=== PATIENT | female | born 1990 | race American Indian/Alaskan Native ===

== ENCOUNTER 2016-11-16 09:28 | Emergency (ER) | payer OTHER ==
[2016-11-16 09:29] VITALS: BMI 29.7
[2016-11-16 09:40] VITALS: BP 123/87; PULSE 94; RESP 20; TEMP 98.1; O2SAT 100
[2016-11-16] MEDS ORDERED: Oxycodone/Acetaminophen 5/325 mg Tab PO STA (09:45)
--- NOTE | 2016-11-16 09:45 | C.PDOC ---
History Of Present Illness Dental pain, x 1 wk, no fever taking no meds Time Seen by Provider: 11/16/16 09:34 Chief Complaint (Nursing): Dental Pain History Per: Patient History/Exam Limitations: no limitations Onset/Duration Of Symptoms: Days Current Symptoms Are (Timing): Worse Severity: Moderate Past Medical History Reviewed: Historical Data, Nursing Documentation, Vital Signs Vital Signs: Last Vital Signs Temp 98.1 F 11/16/16 09:37 Pulse 94 H 11/16/16 09:37 Resp 20 11/16/16 09:37 BP 123/87 11/16/16 09:37 Pulse Ox 100 11/16/16 09:37 - Medical History PMH: Gastritis, HTN Surgical History: No Surg Hx Family History: States: Unknown Family Hx - Social History Hx Tobacco Use: Yes Hx Alcohol Use: No Hx Substance Use: No - Immunization History Hx Influenza Vaccination: Yes Review Of Systems Except As Marked, All Systems Reviewed And Found Negative. Physical Exam - Physical Exam Appears: Well, Non-toxic Head: Atraumatic, Normacephalic Teeth: Caries (multiple with partial messing rt lower and upper), Tender To Palpation Throat: Normal Neurological/Psych: Oriented x3, Normal Speech, Normal Cognition ED Course And Treatment O2 Sat by Pulse Oximetry: 100 Medical Decision Making Medical Decision Making: Pt medicated for pain Urged to follow up with dentist flako Disposition - Disposition Disposition: HOME/ ROUTINE Disposition Time: 09:42 Condition: GOOD Additional Instructions: Follow up with dentist flako Prescriptions: Amoxicillin [Amoxil 500 mg Cap] 1 cap PO TID #21 cap Naproxen [Naprosyn] 1 tab PO BID PRN #25 tab PRN Reason: Pain Instructions: Dental Caries (ED), Toothache (ED) - Clinical Impression Clinical Impression: Pain, dental
[2016-11-16] MEDS ORDERED: Oxycodone/Acetaminophen 5/325 mg Tab ONE (09:59)
== END 2016-11-16 10:08 | disposition home or self-care (01) ==
LOC: C.ER 09:28
DX: K08.89 Other specified disorders of teeth and supporting structures (principal)
CPT/HCPCS: 96372; 99283; J1885

== ENCOUNTER 2016-11-27 08:34 | Emergency (ER) | payer OTHER ==
[2016-11-27 08:40] VITALS: BMI 25.0
[2016-11-27] MEDS ORDERED: Sodium Chloride 0.9% 1,000 ML IV ONE ×2 (08:42→10:14)
[2016-11-27] MEDS ORDERED: Sodium Chloride 0.9% 1,000 ML ONE ×2 (08:58→10:16)
--- NOTE | 2016-11-27 09:08 | C.PDOC ---
History Of Present Illness 26 yr old female with PMHx of gastric sleeve in 2011, presents to the ER for evaluation of nausea, vomiting, diarrhea and headache for 1 day. Patient denies fever, chest pain, SOB, abdominal pain, dysuria, weakness or numbness. Time Seen by Provider: 11/27/16 08:37 Chief Complaint (Nursing): Abdominal Pain History Per: Patient History/Exam Limitations: no limitations Onset/Duration Of Symptoms: Days (1) Current Symptoms Are (Timing): Still Present Radiation Of Pain To:: None Past Medical History Reviewed: Historical Data, Nursing Documentation, Vital Signs Vital Signs: Last Vital Signs Temp 98.6 F 11/27/16 11:25 Pulse 58 L 11/27/16 11:25 Resp 16 11/27/16 11:25 BP 110/69 11/27/16 11:25 Pulse Ox 100 11/27/16 11:25 - Medical History PMH: Gastritis, HTN, Sexually Transmitted Disease Family History: States: No Known Family Hx - Social History Hx Tobacco Use: Yes Hx Alcohol Use: No Hx Substance Use: No - Immunization History Hx Tetanus Toxoid Vaccination: No Hx Influenza Vaccination: Yes Hx Pneumococcal Vaccination: No Review Of Systems Except As Marked, All Systems Reviewed And Found Negative. Constitutional: Negative for: Fever Cardiovascular: Negative for: Chest Pain Respiratory: Negative for: Shortness of Breath Gastrointestinal: Positive for: Nausea, Vomiting, Diarrhea. Negative for: Abdominal Pain Genitourinary: Negative for: Dysuria Neurological: Positive for: Headache. Negative for: Weakness, Numbness Physical Exam - Physical Exam Appears: Non-toxic, No Acute Distress, Other ((+) Actively vomiting.) Skin: Normal Color, Warm, Dry, No Rash Head: Atraumatic, Normacephalic Eye(s): bilateral: Normal Inspection, PERRL, EOMI Throat: Normal, No Erythema, No Exudate Neck: Normal, Normal ROM, Supple Chest: Symmetrical, No Tenderness Cardiovascular: Rhythm Regular, No Murmur Respiratory: Normal Breath Sounds, No Rales, No Rhonchi, No Wheezing Gastrointestinal/Abdominal: Soft, Tenderness (Mild diffuse tenderness), No Guarding, No Rebound Extremity: Normal ROM, No Swelling Neurological/Psych: Oriented x3, Normal Speech Gait: Steady ED Course And Treatment - Laboratory Results Result Diagrams: 11/27/16 09:10 11/27/16 09:10 Lab Interpretation: Normal Urine POC: Negative O2 Sat by Pulse Oximetry: 99 Pulse Ox Interpretation: Normal Progress Note: Patient requested pain medication and is treated with Toradol IVP. Patient is treated with Pepcid IVP and Reglan IVP for the nausea, vomiting and diarrhea. Treated with additional NSS and zofran. On re-evaluation tolerating PO, abdomen soft. On re-evaluation tolerating PO, feeling better. Abdomen soft non-tender Reassessment Condition: Improved Medical Decision Making Medical Decision Making: PLAN: * CBC * HCG Urine * Urinalysis * Pepcid IVP * Reglan IVP * Toradol IVP * Sodium Chloride IV Disposition Counseled Patient/Family Regarding: Studies Performed, Diagnosis, Need For Followup, Rx Given - Disposition Referrals: [facility] [Outside] [facility] [Outside] Disposition: HOME/ ROUTINE Disposition Time: 11:20 Condition: STABLE Additional Instructions: Follow up with your PMD or clinic Return to ED if any increase symptoms Prescriptions: Ondansetron ODT [Zofran ODT] 1 odt PO BID PRN #6 odt PRN Reason: Nausea/Vomiting Instructions: Dehydration (ED), Gastroenteritis (DC) - POA Present On Arrival: None - Clinical Impression Clinical Impression: Vomiting, Nausea - PA / COMMERCIAL ADMINISTRATOR / Resident Statement MD/DO has reviewed & agrees with the documentation as recorded. - Scribe Statement The provider has reviewed the documentation as recorded by the Scribe Amber Quinones All medical record entries made by the Scribe were at my direction and personally dictated by me. I have reviewed the chart and agree that the record accurately reflects my personal performance of the history, physical exam, medical decision making, and the department course for this patient. I have also personally directed, reviewed, and agree with the discharge instructions and disposition.
[2016-11-27 09:16] LABS: BASO % 0.4 % (0.0-2.0); EOS % 0.1 % (0.0-4.0); HEMATOCRIT 37.9 % (34.0-47.0); LYMPH # 0.8 K/uL (1.0-4.3); MEAN CELL VOLUME 83.1 fL (81.0-99.0); MEAN CORPUSCULAR HEMOGLOBIN 26.6 pg (27.0-31.0); MEAN PLATELET VOLUME 9.1 fL (7.2-11.7); MONO # 0.2 K/uL (0.0-0.8); MONO % 2.3 % (0.0-10.0); RED CELL DISTRIBUTION WIDTH 15.3 % (11.5-14.5); WHITE BLOOD COUNT 6.6 K/uL (4.8-10.8)
[2016-11-27 09:25] LABS: CHLORIDE 103 mmol/L (98-107); POTASSIUM 3.7 mmol/L (3.6-5.2); SODIUM 142 mmol/L (132-148)
[2016-11-27 09:27] LABS: GFR AFRICAN-AMERICAN > 60
[2016-11-27 09:28] LABS: ALB/GLOB RATIO 1.2 (1.0-2.1); ALKALINE PHOSPHATASE 69 U/L (38-126); ALT/SGPT 7 U/L (9-52); AST/SGOT 26 U/L (14-36); BILIRUBIN,TOTAL 0.6 mg/dL (0.2-1.3); BLOOD UREA NITROGEN 9 mg/dL (7-17); CALCIUM 9.2 mg/dl (8.6-10.4); CARBON DIOXIDE 22 mmol/L (22-30); GLUCOSE,RANDOM 110 mg/dL (65-105)
[2016-11-27 09:49] LABS: RBC URINE 3 /hpf (0-3); URINE BACTERIA OCC (<OCC); URINE BILIRUBIN NEGATIVE (NEGATIVE); URINE BLOOD NEGATIVE (NEGATIVE); URINE COLOR Yellow (YELLOW); URINE GLUCOSE (UA) NORMAL (Normal); URINE KETONE TRACE mg/dL (NEGATIVE); URINE LEUKOCYTE ESTERASE 1+ Leu/uL (Negative); URINE PROTEIN 1+ mg/dL (NEGATIVE); URINE UROBILINOGEN NORMAL mg/dL (0.2-1.0); WBC URINE 7 /hpf (0-5)
[2016-11-27 11:26] VITALS: BP 110/69; PULSE 58; RESP 16; TEMP 98.6
[2016-11-27 17:23] VITALS: O2SAT 99
== END 2016-11-27 11:26 | disposition home or self-care (01) ==
LOC: C.ER 08:34
DX: R11.2 Nausea with vomiting, unspecified (principal)
CPT/HCPCS: 80053; 81001; 83690; 84703; 85025; 96361; 96374; 96375; 99284; J1885; J2405; J2765; J7040

== ENCOUNTER 2016-11-27 20:46 | Emergency (ER) | payer OTHER ==
[2016-11-27 20:46] VITALS: BMI 29.7
[2016-11-27 20:55] VITALS: BP 166/82; PULSE 88; RESP 20; TEMP 98; O2SAT 97
--- NOTE | 2016-11-27 21:48 | C.PDOC ---
History Of Present Illness I went to see this patient as soon as I signed up for her, but could not find her. I was informed by the staff that the pt had left without being seen. Time Seen by Provider: 11/27/16 21:42 Past Medical History Vital Signs: Last Vital Signs Temp 98 F 11/27/16 20:51 Pulse 88 11/27/16 20:51 Resp 20 11/27/16 20:51 BP 166/82 H 11/27/16 20:51 Pulse Ox 97 11/27/16 20:51 - Medical History PMH: Gastritis, HTN, Sexually Transmitted Disease Family History: States: Unknown Family Hx - Social History Hx Tobacco Use: Yes Hx Alcohol Use: No Hx Substance Use: No - Immunization History Hx Tetanus Toxoid Vaccination: No Hx Influenza Vaccination: Yes Hx Pneumococcal Vaccination: No ED Course And Treatment O2 Sat by Pulse Oximetry: 97 Disposition - Disposition Disposition: LEFT W/O BEING SEEN - ER ONLY Disposition Time: 21:48 Condition: UNKNOWN - Clinical Impression Clinical Impression: Patient left without being seen
== END 2016-11-27 21:50 | disposition left against medical advice (07) ==
LOC: C.ER 20:46
DX: M54.9 Dorsalgia, unspecified (principal); Z02.9 Encounter for administrative examinations, unspecified

== ENCOUNTER 2016-11-29 09:28 | Emergency (ER) | payer OTHER ==
[2016-11-29 09:28] VITALS: BMI 29.7
[2016-11-29 10:02] VITALS: BP 126/85; PULSE 59; RESP 20; TEMP 98.2; O2SAT 100
--- NOTE | 2016-11-29 11:28 | C.PDOC ---
History Of Present Illness 26 year old female presents to the ED requesting detox from opioids. Patient was seen by the clinical social worker who states there was a detox bed available and instructed labs. Labs were ordered however the patient states she has a family emergency and left without being seen. Time Seen by Provider: 11/29/16 10:31 Chief Complaint (Nursing): Substance Abuse History Per: Patient History/Exam Limitations: no limitations Past Medical History Vital Signs: Last Vital Signs Temp 98.2 F 11/29/16 10:00 Pulse 59 L 11/29/16 10:00 Resp 20 11/29/16 10:00 BP 126/85 11/29/16 10:00 Pulse Ox 100 11/29/16 11:29 - Medical History PMH: Gastritis, HTN, Sexually Transmitted Disease Denies: Diabetes, Hepatitis, HIV, Seizures Family History: States: Unknown Family Hx - Social History Hx Tobacco Use: Yes Hx Alcohol Use: No Hx Substance Use: Yes (opiates) - Immunization History Hx Tetanus Toxoid Vaccination: No Hx Influenza Vaccination: Yes Hx Pneumococcal Vaccination: No ED Course And Treatment O2 Sat by Pulse Oximetry: 100 (Room air) Pulse Ox Interpretation: Normal Progress Note: Patient left without being seen. Disposition - Disposition Disposition: LEFT W/O BEING SEEN - ER ONLY Disposition Time: 11:00 Condition: STABLE - Clinical Impression Clinical Impression: Opioid abuse - PA / TELEPHONE DIRECTORY DISTRIBUTOR DRIVER / Resident Statement MD/DO has reviewed & agrees with the documentation as recorded. - Scribe Statement The provider has reviewed the documentation as recorded by the Scribe Shelia Le. All medical record entries made by the Scribe were at my direction and personally dictated by me. I have reviewed the chart and agree that the record accurately reflects my personal performance of the history, physical exam, medical decision making, and the department course for this patient. I have also personally directed, reviewed, and agree with the discharge instructions and disposition.
== END 2016-11-29 11:31 | disposition left against medical advice (07) ==
LOC: C.ER 09:28
DX: F11.10 Opioid abuse, uncomplicated (principal); Z02.9 Encounter for administrative examinations, unspecified

== ENCOUNTER 2016-12-08 11:09 | Emergency (ER) | payer OTHER ==
[2016-12-08 11:09] VITALS: BMI 29.7
[2016-12-08 11:24] VITALS: TEMP 98.7; O2SAT 100
--- NOTE | 2016-12-08 11:59 | C.PDOC ---
History Of Present Illness 26 yr old female with PMHx of HTN, presents to the ER for percocet detox. Patient reports last use was 2 days ago. Patient denies fever, chills, chest pain, SOB, nausea, vomiting, abdominal pain, diarrhea, headache, weakness or numbness. Denies any suicidal or homicidal ideation. Time Seen by Provider: 12/08/16 11:32 Chief Complaint (Nursing): Substance Abuse History Per: Patient History/Exam Limitations: no limitations Onset/Duration Of Symptoms: Persistent Past Medical History Reviewed: Historical Data, Nursing Documentation, Vital Signs Vital Signs: Last Vital Signs Temp 98.7 F 12/08/16 11:21 Pulse 74 12/08/16 14:22 Resp 16 12/08/16 14:22 BP 162/100 H 12/08/16 14:22 Pulse Ox 100 12/08/16 13:46 - Medical History PMH: Gastritis, HTN, Sexually Transmitted Disease Family History: States: No Known Family Hx - Social History Hx Tobacco Use: Yes Hx Alcohol Use: No Hx Substance Use: Yes (opiates) - Immunization History Hx Tetanus Toxoid Vaccination: No Hx Influenza Vaccination: Yes Hx Pneumococcal Vaccination: No Review Of Systems Except As Marked, All Systems Reviewed And Found Negative. Constitutional: Negative for: Fever, Chills Cardiovascular: Negative for: Chest Pain Respiratory: Negative for: Shortness of Breath Gastrointestinal: Negative for: Nausea, Vomiting, Abdominal Pain, Diarrhea Neurological: Negative for: Weakness, Numbness, Headache Psych: Negative for: Suicidal ideation Physical Exam - Physical Exam Appears: Well, Non-toxic, No Acute Distress Skin: Warm, Dry, No Rash Head: Atraumatic, Normacephalic Eye(s): bilateral: Normal Inspection, PERRL, EOMI Oral Mucosa: Moist Throat: Normal, No Erythema, No Exudate Neck: Normal, Normal ROM, Supple Chest: Symmetrical, No Tenderness Cardiovascular: Rhythm Regular, No Murmur Respiratory: Normal Breath Sounds, No Rales, No Rhonchi, No Wheezing Gastrointestinal/Abdominal: Normal Exam, Soft, No Tenderness, No Guarding, No Rebound Extremity: Normal ROM, No Swelling Neurological/Psych: Oriented x3, Normal Speech, Normal Motor ED Course And Treatment - Laboratory Results Result Diagrams: 12/08/16 11:57 12/08/16 11:57 Lab Interpretation: Normal O2 Sat by Pulse Oximetry: 100 Progress Note: Patient is pending crisis evaluation. Case discussed and patient evaluated by crisis who request discharge and follow up with outpatient services Medical Decision Making Medical Decision Making: PLAN: * Alcohol Serum * Drug Screen * CBC * Urinalysis Disposition Counseled Patient/Family Regarding: Studies Performed, Diagnosis, Need For Followup - Disposition Referrals: [facility] [Outside] [facility] [Outside] Disposition: HOME/ ROUTINE Disposition Time: 14:00 Condition: STABLE Additional Instructions: Follow up with outpatient services as directed by crisis team Instructions: Narcotic Abuse (ED), Hypertension (ED) - Clinical Impression Clinical Impression: Drug abuse, Hypertension - PA / STOCK WORKER AND DELIVERER / Resident Statement MD/DO has reviewed & agrees with the documentation as recorded. - Scribe Statement The provider has reviewed the documentation as recorded by the Scribe Amber Quinones All medical record entries made by the Yueib[employer]encia were at my direction and personally dictated by me. I have reviewed the chart and agree that the record accurately reflects my personal performance of the history, physical exam, medical decision making, and the department course for this patient. I have also personally directed, reviewed, and agree with the discharge instructions and disposition.
[2016-12-08 12:03] LABS: BASO % 0.6 % (0.0-2.0); EOS % 0.1 % (0.0-4.0); HEMATOCRIT 39.5 % (34.0-47.0); LYMPH # 1.7 K/uL (1.0-4.3); LYMPH % 34.4 % (20.0-40.0); MEAN CELL VOLUME 82.2 fL (81.0-99.0); MEAN CORPUSCULAR HEMOGLOBIN 26.8 pg (27.0-31.0); MEAN CORPUSCULAR HGB CONC 32.7 g/dL (33.0-37.0); MEAN PLATELET VOLUME 9.1 fL (7.2-11.7); MONO # 0.3 K/uL (0.0-0.8); RED CELL DISTRIBUTION WIDTH 15.3 % (11.5-14.5); WHITE BLOOD COUNT 4.8 K/uL (4.8-10.8)
[2016-12-08 12:10] LABS: CHLORIDE 96 mmol/L (98-107); POTASSIUM 3.2 mmol/L (3.6-5.2); SODIUM 141 mmol/L (132-148)
[2016-12-08 12:12] LABS: ALB/GLOB RATIO 1.2 (1.0-2.1); ALKALINE PHOSPHATASE 72 U/L (38-126); AST/SGOT 19 U/L (14-36); BILIRUBIN,TOTAL 0.6 mg/dL (0.2-1.3); BLOOD UREA NITROGEN 10 mg/dL (7-17); CARBON DIOXIDE 25 mmol/L (22-30); GFR AFRICAN-AMERICAN > 60; TOTAL PROTEIN 8.3 g/dL (6.3-8.3)
[2016-12-08 12:13] LABS: ALCOHOL SERUM < 10 mg/dl (0-10); ALT/SGPT 13 U/L (9-52); CALCIUM 9.1 mg/dl (8.6-10.4); GLUCOSE,RANDOM 94 mg/dL (65-105)
[2016-12-08 12:25] LABS: RBC URINE 5 /hpf (0-3); URINE BACTERIA RARE (<OCC); URINE BILIRUBIN NEGATIVE (NEGATIVE); URINE BLOOD NEGATIVE (NEGATIVE); URINE COLOR Yellow (YELLOW); URINE GLUCOSE (UA) NORMAL (Normal); URINE KETONE 1+ mg/dL (NEGATIVE); URINE LEUKOCYTE ESTERASE 2+ Leu/uL (Negative); URINE PROTEIN NEGATIVE (NEGATIVE); URINE URIC ACID CRYSTALS RARE /hpf (<OCC); WBC URINE 24 /hpf (0-5)
[2016-12-08 14:23] VITALS: BP 162/100; PULSE 74; RESP 16
== END 2016-12-08 14:23 | disposition home or self-care (01) ==
LOC: C.ER 11:09
DX: F19.10 Other psychoactive substance abuse, uncomplicated (principal); I10 Essential (primary) hypertension

== ENCOUNTER 2017-07-13 12:42 | Emergency (ER) | payer OTHER ==
[2017-07-13 12:42] VITALS: BMI 29.7
[2017-07-13] MEDS ORDERED: Sodium Chloride 0.9% 1,000 ML IV ONE ×2 (12:56→14:53)
--- NOTE | 2017-07-13 13:02 | C.PDOC ---
History Of Present Illness 27 y/o female brought in by EMS c/o abdominal pain, vomiting, and diarrhea since last night. Patient denies chest pain, SOB, or palpitations. No fever or chills. No symptoms. Time Seen by Provider: 07/13/17 12:43 Chief Complaint (Nursing): GI Problem History Per: Patient History/Exam Limitations: no limitations Onset/Duration Of Symptoms: Days Current Symptoms Are (Timing): Still Present Severity: Mild Location Of Pain/Discomfort: Diffuse Quality Of Discomfort: "Pain" Associated Symptoms: Nausea, Vomiting. denies: Fever, Chills Recent travel outside of the [place]: No Additional History Per: Patient Abnormal Vaginal Bleeding: No Past Medical History Reviewed: Historical Data, Nursing Documentation, Vital Signs Vital Signs: Last Vital Signs Temp 98.7 F 07/13/17 16:59 Pulse 60 07/13/17 16:59 Resp 18 07/13/17 16:59 BP 149/85 07/13/17 16:59 Pulse Ox 98 07/13/17 16:59 - Medical History PMH: Gastritis, HTN (NO MEDS), Sexually Transmitted Disease ((Can't recall ' which one')) Denies: Diabetes, Hepatitis, HIV, Chronic Kidney Disease, Seizures Other Surgeries: Gastric Sleeve Family History: States: Unknown Family Hx - Social History Hx Tobacco Use: Yes Hx Alcohol Use: No (Denies) Hx Substance Use: No (Denies) - Immunization History Hx Tetanus Toxoid Vaccination: No Hx Influenza Vaccination: No Hx Pneumococcal Vaccination: No Review Of Systems Except As Marked, All Systems Reviewed And Found Negative. Constitutional: Negative for: Fever, Chills Cardiovascular: Negative for: Chest Pain, Palpitations Respiratory: Negative for: Shortness of Breath Gastrointestinal: Positive for: Nausea, Vomiting, Abdominal Pain Genitourinary: Negative for: Dysuria, Vaginal Discharge, Vaginal Bleeding Physical Exam - Physical Exam Appears: Non-toxic, No Acute Distress Skin: Warm, Dry Head: Atraumatic, Normacephalic Oral Mucosa: Moist Chest: Symmetrical Cardiovascular: Rhythm Regular, No Murmur Respiratory: Normal Breath Sounds, No Rales, No Rhonchi, No Wheezing Gastrointestinal/Abdominal: Soft, Tenderness (Mild abdominal tenderness, diffusely) Back: Normal Inspection, No CVA Tenderness Neurological/Psych: Oriented x3 ED Course And Treatment - Laboratory Results Result Diagrams: 07/13/17 13:02 07/13/17 13:02 Lab Interpretation: No Acute Changes Urine POC: Negative O2 Sat by Pulse Oximetry: 100 (RA) Pulse Ox Interpretation: Normal - Other Rad No standard instances X-Ray: Viewed By Me, Read By Radiologist Interpretation: OBS series: neg Progress Note: Treated with IVF NSS x 2 liters, zofran and pepcid. On re- evaluation vomit x 1. treated with additional zofran and toradol 30 mg IV. Treated with KCL 40 meq PO. On re-evaluation abdomen soft. Discharged in stable condition Reassessment Condition: Improved Medical Decision Making Medical Decision Making: Plans: * Blood labs * Obstructive series * Pepcid * Zofran * IV fluids * UA Disposition Counseled Patient/Family Regarding: Studies Performed, Diagnosis, Need For Followup, Rx Given - Disposition Referrals: [facility] [Outside] [facility] [Outside] Disposition: HOME/ ROUTINE Disposition Time: 17:00 Condition: IMPROVED Additional Instructions: return to ED if any increase symptoms Prescriptions: Ondansetron ODT [Zofran ODT] 1 odt PO BID PRN #6 odt PRN Reason: Nausea/Vomiting Instructions: Gastroenteritis (ED) Forms: [facility] (Austrian) - POA Present On Arrival: None - Clinical Impression Clinical Impression: Vomiting, Nausea, Diarrhea, Gastroenteritis - Scribe Statement The provider has reviewed the documentation as recorded by the Scribe Dwaine dick All medical record entries made by the Scribe were at my direction and personally dictated by me. I have reviewed the chart and agree that the record accurately reflects my personal performance of the history, physical exam, medical decision making, and the department course for this patient. I have also personally directed, reviewed, and agree with the discharge instructions and disposition.
[2017-07-13 13:06] LABS: BASO % 0.3 % (0.0-2.0); HEMATOCRIT 36.5 % (34.0-47.0); LYMPH # 0.6 K/uL (1.0-4.3); MEAN CELL VOLUME 81.4 fL (81.0-99.0); MEAN CORPUSCULAR HEMOGLOBIN 26.6 pg (27.0-31.0); MEAN CORPUSCULAR HGB CONC 32.6 g/dL (33.0-37.0); MEAN PLATELET VOLUME 9.4 fL (7.2-11.7); MONO # 0.1 K/uL (0.0-0.8); MONO % 1.9 % (0.0-10.0); NRBC % 0.1 % (0.0-2.0); PLATELET COUNT 340 K/uL (130-400); RED CELL DISTRIBUTION WIDTH 16.4 % (11.5-14.5); WHITE BLOOD COUNT 6.4 K/uL (4.8-10.8)
[2017-07-13 13:27] VITALS: RESP 18
[2017-07-13 13:32] LABS: ALB/GLOB RATIO 1.4 (1.0-2.1); ALKALINE PHOSPHATASE 85 U/L (38-126); ALT/SGPT 26 U/L (9-52); AST/SGOT 27 U/L (14-36); BILIRUBIN,TOTAL 0.9 mg/dL (0.2-1.3); BLOOD UREA NITROGEN 11 mg/dL (7-17); CALCIUM 9.1 mg/dl (8.6-10.4); CARBON DIOXIDE 23 mmol/L (22-30); CHLORIDE 104 mmol/L (98-107); GFR AFRICAN-AMERICAN > 60; GLUCOSE,RANDOM 115 mg/dL (65-105); POTASSIUM 3.4 mmol/L (3.6-5.2); SODIUM 139 mmol/L (132-148); TOTAL PROTEIN 8.1 g/dL (6.3-8.3)
[2017-07-13 14:17] LABS: NEUTROPHIL 90 % (50-75); TOTAL CELLS COUNTED 100
[2017-07-13 15:10] LABS: RBC URINE 2 /hpf (0-3); URINE BACTERIA RARE (<OCC); URINE BILIRUBIN NEGATIVE (NEGATIVE); URINE BLOOD NEGATIVE (NEGATIVE); URINE COLOR Yellow (YELLOW); URINE GLUCOSE (UA) NORMAL (Normal); URINE KETONE 2+ mg/dL (NEGATIVE); URINE LEUKOCYTE ESTERASE 3+ Leu/uL (Negative); URINE PROTEIN 2+ mg/dL (NEGATIVE); URINE UROBILINOGEN NORMAL mg/dL (0.2-1.0); WBC URINE 21 /hpf (0-5)
--- NOTE | 2017-07-13 15:50 | RAD ---
PROCEDURE: Radiographs of the chest and abdomen (obstructive series) HISTORY: Abd Pain COMPARISON: No prior. TECHNIQUE: AP radiograph of the chest, with upright and supine radiographs of the abdomen. FINDINGS: CHEST: No acute infiltrate pleural effusion or pneumothorax. The cardiomediastinal silhouette appears unremarkable diffusely. ABDOMEN AND PELVIS: There is a nonobstructive bowel gas pattern appreciated with surgical clips identified in the left upper quadrant abdomen. No free intrarenal gas or air-fluid level formation throughout bowel loops. No abnormal intra-abdominal calcifications. IMPRESSION: Nonobstructive bowel gas pattern is appreciated the abdomen which remarkable only for surgical clips in the left upper quadrant. Unremarkable chest radiography.
[2017-07-13] MEDS ORDERED: Potassium Chloride 20 mEq/15 ml LIQ UD PO STA (16:41)
[2017-07-13 17:00] VITALS: BP 149/85; PULSE 60; TEMP 98.7
[2017-07-13 17:33] VITALS: O2SAT 100
== END 2017-07-13 17:04 | disposition home or self-care (01) ==
LOC: C.ER 12:42
DX: K52.9 Noninfective gastroenteritis and colitis, unspecified (principal); I10 Essential (primary) hypertension; F17.210 Nicotine dependence, cigarettes, uncomplicated
CPT/HCPCS: 74022; 80053; 81001; 83690; 84703; 85025; 96361; 96374; 96375; 96376; 99285; J1885; J2405; J7040

== ENCOUNTER 2017-09-18 03:13 | Emergency (ER) | payer OTHER ==
[2017-09-18 03:14] VITALS: BMI 29.7
[2017-09-18] MEDS ORDERED: Sodium Chloride 0.9% 1,000 ML IV ONE (03:43)
[2017-09-18] MEDS ORDERED: Albuterol 0.083% Inhal Sol (2.5 mg/3 mL) UD INH STA (03:44)
[2017-09-18] MEDS ORDERED: MethylPREDNISolone 40 mg Vial IVP STA (03:45)
--- NOTE | 2017-09-18 03:46 | C.PDOC ---
History Of Present Illness 27 yo female w/o significant PMHx brought to ED by parent for evaluation of cold sx for past 3 days associated with bodyaches, chills, runny nose, dry cough , non-bilious vomiting and watery non-bloody diarrhea 2-3 times daily. Pt sts, " was unable to sleep now due to bodyaches". Otherwise, parent denies lethargy drooling, dizziness, neck pain, CP, SOB, wheezing, abd. pain, back pain, UTI sx, rash. Ambulate to Ed for evaluation, not in any apparent distress. Time Seen by Provider: 09/18/17 03:34 Chief Complaint (Nursing): Flu-like Symptoms History Per: Patient Onset/Duration Of Symptoms: Gradual Past Medical History Reviewed: Historical Data, Nursing Documentation, Vital Signs Vital Signs: Last Vital Signs Temp 98.9 F 09/18/17 06:33 Pulse 61 09/18/17 06:33 Resp 18 09/18/17 06:33 BP 185/94 H 09/18/17 06:33 Pulse Ox 100 09/18/17 06:33 - Medical History PMH: Gastritis, HTN, Sexually Transmitted Disease Denies: Diabetes, Hepatitis, HIV, Chronic Kidney Disease, Seizures Surgical History: No Surg Hx Family History: States: Unknown Family Hx - Social History Hx Tobacco Use: Yes Hx Alcohol Use: No Hx Substance Use: Yes (opiates) - Immunization History Hx Tetanus Toxoid Vaccination: No Hx Influenza Vaccination: Yes Hx Pneumococcal Vaccination: No Review Of Systems Except As Marked, All Systems Reviewed And Found Negative. Constitutional: Positive for: Fever, Chills, Malaise Eyes: Negative for: Vision Change, Redness ENT: Positive for: Nose Discharge, Nose Congestion, Throat Pain. Negative for: Ear Discharge Cardiovascular: Negative for: Chest Pain, Palpitations Respiratory: Positive for: Cough. Negative for: Shortness of Breath, Wheezing Gastrointestinal: Positive for: Nausea, Vomiting, Abdominal Pain, Diarrhea. Negative for: Melena, Hematochezia, Hematemesis Genitourinary: Negative for: Dysuria, Frequency Musculoskeletal: Negative for: Neck Pain, Back Pain Skin: Negative for: Rash Neurological: Negative for: Weakness, Numbness, Altered Mental Status, Headache , Dizziness Physical Exam - Physical Exam Appears: Well, No Acute Distress Skin: Normal Color, Warm, Dry, No Rash Head: Normacephalic Eye(s): bilateral: PERRL Ear(s): Bilateral: Normal Nose: No Flaring, Discharge (scant clear) Oral Mucosa: Moist, No Drooling Tongue: Normal Appearing Lips: Normal Appearing Throat: No Erythema, No Drooling Neck: Trachea Midline, Supple, Other ((-) meningeal sign) Cardiovascular: Rhythm Regular Respiratory: No Decreased Breath Sounds, No Accessory Muscle Use, No Stridor, Wheezing (Right base scattered expiratory wheezing) Gastrointestinal/Abdominal: Soft, No Tenderness, No Distention, No Guarding Extremity: Normal ROM, No Deformity, No Swelling Neurological/Psych: Oriented x3, Normal Speech ED Course And Treatment - Laboratory Results Result Diagrams: 09/18/17 04:13 09/18/17 04:13 Urine POC: Negative O2 Sat by Pulse Oximetry: 96 Pulse Ox Interpretation: Normal Progress Note: On re-evaluation, pt is afebrile, hemodynamicaly stable. Non- toxic. AMbulatory in ED with stable gait. PUlseOx 98% RA. Neck: SUpple, (-) meningeal sign. ENT: No acute findings. neck: SUpple, (-) meningeal sign. LUngs: CTA B/L, BS equal B/L. Abd: benign. Neurologicaly intact. Blood work review, hypokalemia noted. Otherwise, blood work appears without acute abnoramlities, no dehydration.Elevated BP noted in ED, pt admits hx of HTN, did not take her medication today. Pt has clinical findings c/w Inflienza- like illness. Pt advised. ref. to F/u with PMD in 2-3 days for re-eavl. return if any new changes. Disposition Counseled Patient/Family Regarding: Diagnosis, Need For Followup, Rx Given - Disposition Referrals: [facility] [Outside] Disposition Time: 06:01 Condition: STABLE Additional Instructions: ENCOURAGE FLUIDS TAKE MEDICATION PRESCRIBED FOLLOW UP WITH PMD IN 2-3 DAYS FOR RE-EVALUATION. RETURN TO ED IF ANY WORSENING OR NEW CHANGES. Prescriptions: Albuterol HFA [Ventolin HFA 90 mcg/actuation (8 g)] 1 puff IH Q6 #1 inhaler Ondansetron ODT [Zofran ODT] 1 odt PO BID PRN #6 odt PRN Reason: Nausea/Vomiting Prednisone [Deltasone] 20 mg PO DAILY #3 tablet Instructions: Asthma (ED), Viral Syndrome (ED), Hypertension (ED) Forms: [employer] (Yemeni) - Clinical Impression Clinical Impression: Viral illness, Asthma, Hypertension
[2017-09-18] MEDS ORDERED: Sodium Chloride 0.9% 1,000 ML ONE (03:52)
[2017-09-18] MEDS ORDERED: MethylPREDNISolone 40 mg Vial ONE (03:53)
[2017-09-18] MEDS ORDERED: Albuterol 0.083% Inhal Sol (2.5 mg/3 mL) UD ONE (04:01)
[2017-09-18 04:17] LABS: MONO # 0.5 K/uL (0.0-0.8)
[2017-09-18 04:21] LABS: WHITE BLOOD COUNT 6.2 K/uL (4.8-10.8)
[2017-09-18 04:26] LABS: BASO % 0.2 % (0.0-2.0); HEMOGLOBIN 12.9 g/dL (11.0-16.0); LYMPH # 1.2 K/uL (1.0-4.3); LYMPH % 18.7 % (20.0-40.0); MEAN CELL VOLUME 79.8 fL (81.0-99.0); MEAN CORPUSCULAR HEMOGLOBIN 26.6 pg (27.0-31.0); MEAN CORPUSCULAR HGB CONC 33.3 g/dL (33.0-37.0); MEAN PLATELET VOLUME 8.9 fL (7.2-11.7); MONO % 8.2 % (0.0-10.0); NEUT # 4.5 K/uL (1.8-7.0); NEUT % 72.9 % (50.0-75.0); RBC 4.84 Mil/uL (3.80-5.20); RED CELL DISTRIBUTION WIDTH 15.3 % (11.5-14.5)
[2017-09-18 04:28] LABS: BLOOD UREA NITROGEN 13 mg/dL (7-17); CALCIUM 9.5 mg/dl (8.6-10.4); GFR AFRICAN-AMERICAN > 60; GFR NON-AFRICAN AMERICAN > 60
[2017-09-18 04:39] LABS: HCG,QUALITATIVE URINE NEGATIVE (NEGATIVE)
[2017-09-18 04:43] LABS: SQUAMOUS EPITHIAL 10 /hpf (0-5); URINE BACTERIA MANY (<OCC); URINE BILIRUBIN NEGATIVE (NEGATIVE); URINE BLOOD 1+ (NEGATIVE); URINE CLARITY Hazy (Clear); URINE COLOR Yellow (YELLOW); URINE GLUCOSE (UA) NORMAL (Normal); URINE LEUKOCYTE ESTERASE NEG Leu/uL (Negative); URINE NITRATE NEGATIVE (NEGATIVE); URINE PROTEIN 2+ mg/dL (NEGATIVE); URINE UROBILINOGEN NORMAL mg/dL (0.2-1.0)
[2017-09-18] MEDS ORDERED: Potassium Chloride 20 mEq ER Tab PO STA (04:51)
[2017-09-18] MEDS ORDERED: Potassium Chloride 20 mEq ER Tab PO ONE (04:59)
[2017-09-18 06:34] VITALS: BP 185/94; PULSE 61; RESP 18; TEMP 98.9
[2017-09-18 06:39] VITALS: O2SAT 96
== END 2017-09-18 06:34 | disposition home or self-care (01) ==
LOC: C.ER 03:13
DX: B34.9 Viral infection, unspecified (principal); J45.909 Unspecified asthma, uncomplicated; I10 Essential (primary) hypertension; E87.6 Hypokalemia
CPT/HCPCS: 80048; 81001; 84703; 85025; 94640; 96374; 96375; 99284; J1885; J2405; J2765; J2920; J7040

== ENCOUNTER 2017-09-19 02:45 | Emergency (ER) | payer OTHER ==
[2017-09-19 02:45] VITALS: BMI 29.7
--- NOTE | 2017-09-19 03:11 | C.PDOC ---
History Of Present Illness 27 yo female w/PMHx of HTN, non-complaint with medication, hx of chronic back pain, opiod abuse, come in for evaluation of diffuse back pain gradually developed for past week. Pt reports, pain is diffuse over back area, describes as "tightness, constant aching pain", worse with movement. Pt admits, was seen here last night due to cold sx. Pt sts, took one dose of Prednisone given yesterday, Otherwise, pt denies high fever, chills, headache, dizziness, visual changes, focal deficits, N/V, neck pain, CP, SOB, dyspnea, diaphoresis, palpitation, abd. pain, V/D, UTI sx, saddle anesthesia, incontinence, denies weakness, sensory or vascular deficits to B/L LEs. Ambulate to D for evaluation , not in any apparent distress. Time Seen by Provider: 09/19/17 02:51 Chief Complaint (Nursing): Back Pain History Per: Patient Onset/Duration Of Symptoms: Gradual Past Medical History Reviewed: Historical Data, Nursing Documentation, Vital Signs Vital Signs: Last Vital Signs Temp 98.7 F 09/19/17 06:31 Pulse 63 09/19/17 06:15 Resp 16 09/19/17 06:15 BP 165/102 H 09/19/17 06:15 Pulse Ox 100 09/19/17 06:28 - Medical History PMH: Gastritis, HTN, Sexually Transmitted Disease Denies: Diabetes, Hepatitis, HIV, Chronic Kidney Disease, Seizures Family History: States: Unknown Family Hx - Social History Hx Tobacco Use: Yes Hx Alcohol Use: No Hx Substance Use: Yes (opiates) - Immunization History Hx Tetanus Toxoid Vaccination: No Hx Influenza Vaccination: Yes Hx Pneumococcal Vaccination: No Review Of Systems Except As Marked, All Systems Reviewed And Found Negative. Constitutional: Negative for: Fever, Chills Eyes: Negative for: Vision Change ENT: Negative for: Ear Discharge, Nose Discharge, Nose Congestion Cardiovascular: Negative for: Chest Pain, Palpitations, Orthopnea Respiratory: Negative for: Cough, Shortness of Breath, Wheezing Gastrointestinal: Negative for: Nausea, Vomiting, Abdominal Pain, Diarrhea Genitourinary: Negative for: Dysuria, Incontinence, Vaginal Discharge, Vaginal Bleeding Musculoskeletal: Positive for: Back Pain Skin: Negative for: Rash Neurological: Negative for: Weakness, Numbness, Altered Mental Status, Dizziness Physical Exam - Physical Exam Appears: Well, Non-toxic, No Acute Distress Skin: Normal Color, Warm, No Rash Head: Normacephalic Eye(s): bilateral: PERRL, EOMI Nose: No Flaring, No Discharge Oral Mucosa: Moist Tongue: Normal Appearing Lips: Normal Appearing Teeth: No Caries, No Edentulous Gingiva: Normal Appearing Throat: No Erythema, No Drooling Neck: Trachea Midline, Supple Cardiovascular: Rhythm Regular, No Friction Rub, No Murmur, No JVD Respiratory: No Decreased Breath Sounds, No Accessory Muscle Use, No Rales, No Rhonchi, No Stridor, No Wheezing Gastrointestinal/Abdominal: No Tenderness, No Distention, No Guarding Back: No CVA Tenderness, No Vertebral Tenderness, Paraspinal Tenderness ( diffuse thoracic and lumbar with mild muscle spasm.) Extremity: Normal ROM (LLE), No Tenderness, No Calf Tenderness, No Deformity, No Swelling Neurological/Psych: Oriented x3, Normal Speech, Normal Motor, Normal Sensation, Normal Reflexes ED Course And Treatment - Laboratory Results Urine POC: Negative O2 Sat by Pulse Oximetry: 100 Pulse Ox Interpretation: Normal - CT Scan/US CT head Other Rad Studies (CT/US): Radiology Report Reviewed CT/US Interpretation: IMPRESSION: 1. No definite acute intracranial abnormality Progress Note: At 4:20, pt reports improvemnet in back pain. HTN noted on presentation. records review from previous visit to ED for past few years and HTN noted as well. Pt reports, " not taking any medication, never was told". Pt denies headache, dizziness, visual changes, focal deficits, CP, SOB, palpitation. UDX (+) benzo. Clonidine given. At 6:00, pt resting comforably, not in any apaprent distress. Pt reports, moderate improvemnet in diffuse back pain. Pt still denies headache, CP, SOB, dyspnea, N/V, visual changes, focal deficits. CT head results review - normal study. Case discussed with ED attending and discharge with outpt f/u recommend at present time. results and findings review and discussed with pt. Strongly advise dto F/U with PMD in 1-2 dyas for BP re-evaluation. return to ED at any time if any worsening or new changes. Pt understand and agrees with discharge. NIHSS Stroke Scale - Date/Time Evaluation Performed Date Performed: 09/19/17 Time Performed: 02:51 When Was NIHSS Performed: Baseline - How Severe is the Stoke Level of Consciousness: 0=Alert LOC to Questions: 1=One correct Best Gaze: 0=Normal Visual: 0=No visual loss Facial: 0=Normal Motor Arm - Left: 0=No drift Motor Arm - Right: 0=No drift Motor Leg - Left: 0=No drift Motor Leg - Right: 0=No drift Limb Ataxia: 0=Absent Sensory: 0=Normal Best Language: 0=No aphasia Dysarthia: 0=Normal articulation Extinction & Inattention (Neglect): 0=Normal, no object Severity Of Stroke: 0= No Stroke Disposition Counseled Patient/Family Regarding: Studies Performed, Diagnosis, Need For Followup - Disposition Referrals: [facility] at [facility] [Outside] Disposition: HOME/ ROUTINE Disposition Time: 06:23 Condition: STABLE Additional Instructions: TAKE MEDICATION PRESCRIBED YESTERDAY FOR VIRAL ILLNESS. TAKE BLOOD PRESSURE MEDS PRESCRIBED FOLLOW UP WITH PMD IN 1-2 DAYS FOR RE-EVALUATION OF BP. RETURN TO ED IF ANY WORSENING OR NEW CHANGES. Prescriptions: amLODIPine [Norvasc] 5 mg PO DAILY #14 tab Instructions: Viral Syndrome (ED), Hypertension (ED), Back Pain (ED) Forms: [employer] (Lithuanian) - Clinical Impression Clinical Impression: Low back pain, Hypertension
[2017-09-19 03:49] LABS: BARBITURATES, UR NEGATIVE (NEGATIVE); OPIATES, UR NEGATIVE (NEGATIVE); PHENCYCLIDINE, UR NEGATIVE (NEGATIVE)
[2017-09-19 04:04] LABS: BENZODIAZEPINES, UR POSITIVE (NEGATIVE)
[2017-09-19 04:46] VITALS: RESP 16
[2017-09-19 04:54] VITALS: O2SAT 100
--- NOTE | 2017-09-19 05:58 | CT ---
EXAM: CT Head Without Intravenous Contrast CLINICAL HISTORY: 27 years old, female; Pain; Headache and other: HTN, back pain TECHNIQUE: Axial computed tomography images of the head/brain without intravenous contrast. All CT scans at this facility use one or more dose reduction techniques, viz.: automated exposure control; ma/kV adjustment per patient size (including targeted exams where dose is matched to indication; i.e. head); or iterative reconstruction technique. Coronal and sagittal reformatted images were created and reviewed. COMPARISON: No relevant prior studies available. FINDINGS: Brain: No intracranial hemorrhage. No mass. No definite edema. Ventricles: No hydrocephalus. Bones/joints: No acute fracture. Soft tissues: Unremarkable. Sinuses: No acute sinusitis. Mastoid air cells: No mastoid effusion. Orbits: Unremarkable as visualized. IMPRESSION: 1. No definite acute intracranial abnormality.
[2017-09-19 06:07] VITALS: PULSE 63
[2017-09-19 06:22] VITALS: BP 165/102
[2017-09-19 06:32] VITALS: TEMP 98.7
== END 2017-09-19 06:47 | disposition home or self-care (01) ==
LOC: C.ER 02:45
DX: I10 Essential (primary) hypertension (principal); M54.5 Low back pain; F11.10 Opioid abuse, uncomplicated
CPT/HCPCS: 70450; 80324; 80345; 80346; 80349; 80353; 80358; 80361; 83992; 96372; 99285; J1885

== ENCOUNTER 2017-09-20 13:42 | Emergency (ER) | payer OTHER ==
[2017-09-20 13:43] VITALS: BMI 29.7
[2017-09-20 14:13] VITALS: BP 168/122; PULSE 71; RESP 20; TEMP 98.4; O2SAT 97
--- NOTE | 2017-09-20 14:41 | C.PDOC ---
History Of Present Illness 27 yo female w/ PMHx of HTN, non-complaint with medication, hx of chronic back pain, opiod abuse, comes in for evaluation of left lower back pain radiating to suprapubic area for the past week. Pt reports, pain is described as "tightness , constant aching pain", worse with movement. Pt admits, was seen here yesterday and the day before for similar complaint, and [facility] yesterday. States she received a shot for pain. Associated symptoms include blood in urine she noticed today. Patient denies high fever, chills, headache, dizziness, visual changes, focal deficits, N/V, neck pain, CP, SOB, dyspnea, diaphoresis, palpitation, V/D, UTI sx, saddle anesthesia, incontinence, denies weakness, sensory or vascular deficits to B/L LEs. Time Seen by Provider: 09/20/17 14:41 Chief Complaint (Nursing): Abdominal Pain History Per: Patient History/Exam Limitations: no limitations Onset/Duration Of Symptoms: Days Current Symptoms Are (Timing): Still Present Past Medical History Reviewed: Historical Data, Nursing Documentation, Vital Signs Vital Signs: Last Vital Signs Temp 98.4 F 09/20/17 14:11 Pulse 71 09/20/17 14:11 Resp 20 09/20/17 15:56 BP 168/122 H 09/20/17 14:11 Pulse Ox 97 09/20/17 15:02 - Medical History PMH: Gastritis, HTN, Sexually Transmitted Disease Family History: States: No Known Family Hx - Social History Hx Tobacco Use: Yes Hx Alcohol Use: No Hx Substance Use: Yes (opiates) - Immunization History Hx Tetanus Toxoid Vaccination: No Hx Influenza Vaccination: Yes Hx Pneumococcal Vaccination: No Review Of Systems Constitutional: Negative for: Fever, Chills Cardiovascular: Negative for: Chest Pain Respiratory: Negative for: Shortness of Breath Gastrointestinal: Positive for: Abdominal Pain. Negative for: Vomiting Genitourinary: Positive for: Hematuria Musculoskeletal: Positive for: Back Pain Skin: Negative for: Rash Neurological: Negative for: Weakness, Numbness Physical Exam - Physical Exam Appears: Non-toxic, No Acute Distress Skin: Warm, Dry, No Rash Head: Atraumatic, Normacephalic Eye(s): bilateral: Normal Inspection, PERRL Nose: Normal Oral Mucosa: Moist Cardiovascular: Rhythm Regular, No Murmur Respiratory: Normal Breath Sounds, No Accessory Muscle Use Gastrointestinal/Abdominal: Soft, No Tenderness, No Distention, No Guarding, No Rebound Extremity: No Swelling Neurological/Psych: Oriented x3, Normal Motor, Normal Sensation, Other (no focal defiicts) ED Course And Treatment O2 Sat by Pulse Oximetry: 97 (on RA) Pulse Ox Interpretation: Normal Disposition - Disposition Referrals: [facility] [Outside] Disposition: HOME/ ROUTINE Disposition Time: 15:56 Condition: GOOD Additional Instructions: Please follow up with your doctor. Return to the ER for any worsening symptoms or for any other concerns. Prescriptions: Cephalexin [Keflex] 500 mg PO BID #20 capsule Instructions: Urinary Tract Infection in Women (ED) Forms: General Discharge Instructions, [facility] (Ivorian) - Clinical Impression Clinical Impression: UTI (urinary tract infection) - Scribe Statement The provider has reviewed the documentation as recorded by the Scribe (Latoya Skinner) All medical record entries made by the Scribe were at my direction and personally dictated by me. I have reviewed the chart and agree that the record accurately reflects my personal performance of the history, physical exam, medical decision making, and the department course for this patient. I have also personally directed, reviewed, and agree with the discharge instructions and disposition.
[2017-09-20 15:31] LABS: SQUAMOUS EPITHIAL 4 /hpf (0-5); URINE BACTERIA OCC (<OCC); URINE BILIRUBIN NEGATIVE (NEGATIVE); URINE BLOOD NEGATIVE (NEGATIVE); URINE CLARITY Hazy (Clear); URINE COLOR Yellow (YELLOW); URINE GLUCOSE (UA) NORMAL (Normal); URINE LEUKOCYTE ESTERASE 2+ Leu/uL (Negative); URINE NITRATE POSITIVE (NEGATIVE); URINE PROTEIN 2+ mg/dL (NEGATIVE)
[2017-09-20 15:32] LABS: HCG,QUALITATIVE URINE NEGATIVE (NEGATIVE)
== END 2017-09-20 15:56 | disposition home or self-care (01) ==
LOC: C.ER 13:42
DX: N39.0 Urinary tract infection, site not specified (principal); I10 Essential (primary) hypertension
CPT/HCPCS: 81001; 84703; 87086; 87181; 96372; 99284; J1885